=== PATIENT | female | born 1970 | race Caucasian/White ===

== ENCOUNTER → 2019-02-06 | Outpatient (CLI) | payer BC ==
--- NOTE | 2019-02-06 10:13 | Diagnostic Imaging Report ---
INDICATION: Abdominal pain x 2 weeks. TIME OF EXAMINATION: 10:00 AM. FINDINGS: The bowel gas pattern is nonobstructed. No pathologic calcifications are identified. IMPRESSION: No acute abnormality is detected. Dictated by: Dictated on workstation # [id number]
== END ==
LOC: RAD FS 09:49
PROVIDERS: ATTEND Nurse Practitioner
DX: R10.9 Unspecified abdominal pain (principal)
CPT/HCPCS: 74018

== ENCOUNTER → 2019-02-28 | Outpatient (CLI) | payer BC ==
--- NOTE | 2019-02-28 11:17 | Diagnostic Imaging Report ---
PROCEDURE: CT abdomen and pelvis without contrast. TECHNIQUE: Multiple contiguous axial images were obtained through the abdomen and pelvis without the use of intravenous contrast. Auto Exposure Controls were utilized during the CT exam to meet ALARA standards for radiation dose reduction. INDICATION: Microhematuria and dysuria. FINDINGS: Images through the lower thorax reveal an approximately 2.5 cm circumscribed nodule in the left breast. The unenhanced images of the liver and spleen reveal no focal abnormality. No gallbladder, pancreatic or adrenal gland abnormality is identified. There is no evidence of urinary tract calculus. There is no hydronephrosis or hydroureter. There is no evidence of bladder stone. No free fluid is seen within the abdomen or pelvis. There is no evidence for focal inflammation or organized fluid collection. IMPRESSION: No acute abnormality is seen. In particular, there is no evidence of obstructive uropathy or urinary tract calculus. 2.5 cm nodule in the left breast should be further evaluated with ultrasonography if not recently performed. Dictated by: Dictated on workstation # [id number]
== END ==
LOC: RAD FS 10:52
PROVIDERS: ATTEND Urology
DX: N63.20 Unspecified lump in the left breast, unspecified quadrant (principal); R31.29 Other microscopic hematuria
CPT/HCPCS: 74176